=== PATIENT | male | born 1985 | race Hispanic/Latino ===

== ENCOUNTER 2020-08-07 19:26 | Emergency (ER) | payer SELFPAY ==
[2020-08-07] MEDS ORDERED: Acetaminophen 500 MG TAB ONE (20:28)
[2020-08-07 20:31] LABS: #Monocytes 0.4 thou/uL (0.11-0.59); #Neutrophils 4.6 thou/uL (1.40-6.50); %Basophils 0.5 % (0.0-1.0); %Eosinophils 0.1 % (0.0-10.0); %Lymphocytes 16.7 % (21.0-51.0); %Monocytes 7.3 % (0.0-10.0); %Neutrophils 75.6 % (42.0-75.0); Hemoglobin 16.3 g/dL (14.0-18.0); Mean Corpuscular HGB CONC 34.2 g/dL (32.0-36.0); Mean Corpuscular Hemoglobin 28.8 pg (27.0-31.0); Mean Corpuscular Volume 84.3 fL (78.0-98.0); Mean Platelet Volume 7.7 fL (7.4-10.4); Platelet Count 242 thou/uL (130-400); RBC Distribution Width 11.4 % (11.5-14.5); Red Blood Cell (RBC) Count 5.64 mill/uL (4.70-6.10); White Blood Cell (WBC) Count 6.1 thou/uL (4.8-10.8)
[2020-08-07] MEDS ORDERED: Ketorolac Tromethamine 30 MG/ML VIAL ONE (20:31)
[2020-08-07 20:53] LABS: ALT (SGPT) 166 U/L (8-55); AST (SGOT) 82 U/L (5-34); Albumin 4.4 g/dL (3.5-5.0); Alkaline Phosphatase 92 U/L (40-110); Anion Gap 16 mmol/L (10-20); BUN (Urea Nitrogen) 9 mg/dL (8.9-20.6); Bilirubin, Total 0.5 mg/dL (0.2-1.2); Calc. Creatinine Clearance 0 mL/min (70-130); Calcium 8.6 mg/dL (7.8-10.44); Carbon Dioxide 23 mmol/L (22-29); Chloride 103 mmol/L (98-107); Globulin 3.7 g/dL (2.4-3.5); Glucose 119 mg/dL (70-105); Protein, Total 8.1 g/dL (6.0-8.3); Sodium 138 mmol/L (136-145)
[2020-08-07 21:02] LABS: Bacteria/HPF None Seen HPF (None Seen); Bilirubin Negative (Negative); Blood, Urine Negative (Negative); Clarity Clear (Clear); Glucose, Urine (Dipstick) Normal (Negative); Ketone, Urine Negative (Negative); Leukocyte Negative Leu/uL (Negative); Nitrite Negative (Negative); Protein, Urine (Dipstick) 50 mg/dL (Neg-Trace); RBC/HPF 0-3 HPF (0-3); Specific Gravity, Urine 1.025 (1.002-1.036); Squamous Epithelial 0-3 HPF (0-3); Urobilinogen Normal mg/dL (Less than 2); WBC/HPF 0-3 HPF (0-3)
--- NOTE | 2020-08-07 21:13 | RAD ---
EXAM: Single view of the chest HISTORY: Diarrhea for 5 days and cough COMPARISON: None FINDINGS: Single view of the chest shows a normal sized cardiomediastinal silhouette. There is scatte red multifocal peripheral opacities concerning for Covid pneumonia. No acute osseous abnormality. IMPRESSION: Scattered multifocal infiltrates
[2020-08-07] MEDS ORDERED: Azithromycin 500 MG VIAL ONE (21:22)
[2020-08-08 01:37] LABS: SARS-CoV-2 PCR by NAA DETECTED (NotDetected)
== END 2020-08-07 23:00 | disposition home or self-care (01) ==
LOC: ERS 19:26
DX: U07.1 COVID-19 (principal)
CPT/HCPCS: 71045; 80053; 81003; 81015; 83605; 85025; 87040; 87086; 87635; 96365; 96375; J0456; J1885; U0003; U0005